=== PATIENT | male | born 1965 | race Two or more races ===

== ENCOUNTER 2016-04-02 13:04 | Inpatient (IN) | payer SELFPAY ==
[~2016-04-02] VITALS: Ht 167.6 cm; Wt 98.1 kg
[2016-04-02] MEDS ORDERED: FENTANYL PF 100 MCG/2 ML VIAL. IV PRN (13:45)
[2016-04-02] MEDS ORDERED: ONDANSETRON PF 4 MG/2 ML VIAL. IV ONE (14:00)
[2016-04-02] MEDS ORDERED: IV NORMAL SALINE 1000ML BAG 1,000 ML IV SCH (14:00)
[2016-04-02 14:08] LABS: BASO # 0.1 x10^3/uL (0.0-0.2); BASO % 1 % (0-3); EOS % 3 % (0-3); HEMATOCRIT 37.7 % (39.0-53.0); HEMOGLOBIN 12.7 g/dL (13.0-17.5); LYMPH # 1.9 x10^3/uL (1.0-4.8); LYMPH % 18 % (24-48); MEAN CORPUSCULAR HEMOGLOBIN 29 pg (25-35); MEAN CORPUSCULAR HGB CONC 34 g/dL (31-37); MEAN CORPUSCULAR VOLUME 87 fL (79-100); MONO % 7 % (0-9); NEUT % 72 % (31-73); PLATELET COUNT 212 x10^3/uL (140-400); RED BLOOD COUNT 4.35 x10^6/uL (4.30-5.70); RED CELL DISTRIBUTION WIDTH 15.4 % (11.5-14.5); WHITE BLOOD COUNT 10.5 x10^3/uL (4.0-11.0)
[2016-04-02 14:13] LABS: NEG OBC FOB NEG; POS OBC FOB POS
[2016-04-02 14:17] LABS: INR 1.1 (0.8-1.1); PROTHROMBIN TIME PATIENT 13.5 SEC (11.7-14.0)
--- NOTE | 2016-04-02 14:18 | EKG ---
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
[2016-04-02 14:20] LABS: BILIRUBIN,URINE NEGATIVE (NEG); GLUCOSE,URINE NEGATIVE (NEG); NITRITE,URINE NEGATIVE (NEG); PROTEIN,URINE 30 mg/dL (NEG-TRACE); UROBILINOGEN,URINE 0.2 mg/dL (0.2 mg/dL)
[2016-04-02 14:23] LABS: CALCIUM 10.3 mg/dL (8.5-10.1); CREATININE 2.5 mg/dL (0.7-1.3); GFR 27.7; POTASSIUM 5.6 mmol/L (3.5-5.1)
[2016-04-02 14:29] LABS: ALBUMIN 5.1 g/dL (3.4-5.0); ALBUMIN/GLOBULIN RATIO 1.4 (1.0-1.7); TOTAL BILIRUBIN 0.5 mg/dL (0.2-1.0); TOTAL PROTEIN 8.7 g/dL (6.4-8.2)
[2016-04-02 14:37] LABS: BACTERIA,URINE 0 /HPF (0-FEW); RBC,URINE 0 /HPF (0-2); SPERM,URINE PRESENT /HPF; WBC,URINE 0 /HPF (0-4)
--- NOTE | 2016-04-02 14:49 | ED.ADGEN ---
Past Medical History Past Medical History: Anxiety, Diabetes-Type II, GERD, Hypertension Past Surgical History: No Surgical History Alcohol Use: None Drug Use: None Adult General Chief Complaint Chief Complaint: ABDOMINAL PAIN HPI HPI Patient is a 50 year old man, history of type 2 diabetes mellitus, hypertension , GERD, who presents to the emergency department with a complaint of periumbilical abdominal pain and cramping that began today, associated with diarrhea, and noted to have blood in his stools. Patient states had 3 stools where he noted bright red blood. He describes the blood as being in the toilet, turning it light red, and also mixed with some stool. Denies any dark tarry stools. Complaining of some nausea but no vomiting. Denies any injuries, does use naproxen, over the past week or so, along with a daily baby aspirin, no history of varices or liver issues, no history of kidney issues, denies any fevers or chills, no previous abdominal surgeries. States he is feeling slightly lightheaded. No chest pain or shortness of breath. Patient was seen at the [facility] today, and sent to the ED for additional evaluation. Review of Systems Review of Systems Constitutional: Denies fever or chills. [] Eyes: Denies change in visual acuity. [] HENT: Denies nasal congestion or sore throat. [] Respiratory: Denies cough or shortness of breath. [] Cardiovascular: Denies chest pain or edema. [] GI: Denies vomiting, periumbilical crampy abdominal pain, associated with bloody stools and diarrhea times one day. : Denies dysuria. [] Musculoskeletal: Denies back pain or joint pain. [] Integument: Denies rash. [] Neurologic: Denies headache, focal weakness or sensory changes. [] Endocrine: Denies polyuria or polydipsia. [] Lymphatic: Denies swollen glands. [] Psychiatric: Denies depression or anxiety. [] Current Medications Current Medications Current Medications Medications (Trade) Dose Ordered Sig/Mimi Start Time Stop Time Status Last Admin Dose Admin Ceftriaxone Sodium/Sodium Chloride (Rocephin/Iv Sodium Chloride 0.9% 50ml) 50 ml @ 100 mls/hr Q24H 04/03/16 16:00 Ceftriaxone Sodium 50 ml @ 100 mls/hr 1X ONCE 04/02/16 15:30 04/02/16 15:59 Dextrose 12.5 gm PRN Q15MIN PRN 04/02/16 15:45 UNV Fentanyl Citrate (Fentanyl 2ml Vial) 50 mcg PRN Q2HR PRN 04/02/16 15:45 UNV Fentanyl Citrate 50 mcg 50 mcg PRN Q15MIN PRN 04/02/16 13:45 04/03/16 13:44 04/02/16 14:03 50 MCG Insulin Aspart (Novolog) 0-5 UNITS TIDWMEALS 04/02/16 17:00 UNV Metronidazole 100 ml @ 100 mls/hr 1X ONCE 04/02/16 15:30 04/02/16 16:29 Ondansetron HCl 4 mg 4 mg PRN Q8HRS PRN 04/02/16 15:45 04/03/16 15:44 UNV Sodium Chloride (Iv Sodium Chloride 0.9% 1000ml Bag) 1,000 ml @ 150 mls/hr Q6H40M 04/02/16 15:31 04/03/16 15:30 UNV Allergies Allergies Allergies Coded Allergies Type Severity Reaction Last Updated Verified acetaminophen Allergy Intermediate 04/02/16 Yes hydrocodone Allergy Intermediate 04/02/16 Yes Physical Exam Physical Exam Constitutional: Well developed, well nourished, no acute distress, non-toxic appearance. [] HENT: Normocephalic, atraumatic, bilateral external ears normal, oropharynx moist, no oral exudates, nose normal. [] Eyes: PERRLA, EOMI, conjunctiva normal, no discharge. [] Neck: Normal range of motion, no tenderness, supple, no stridor. [] Cardiovascular:Heart rate regular rhythm, no murmur, S1, S2, rubs or gallops. [] Lungs & Thorax: Bilateral breath sounds clear to auscultation, no wheezing, rhonchi, rales. No chest tenderness or crepitus. [] Abdomen: Bowel sounds normal, soft, tenderness to palpation in the right lower quadrant and. Umbilical region, no rebound, no rigidity, positive voluntary guarding, no masses, no pulsatile masses. [] Skin: Warm, dry, no erythema, no rash. [] Back: No tenderness, no CVA tenderness. [] Extremities: No tenderness, no cyanosis, no clubbing, ROM intact, no edema. Negative Homans sign. [] Neurologic: Alert and oriented X 3, normal motor function, normal sensory function, no focal deficits noted. [] Psychologic: Affect normal, judgement normal, mood normal. [] Current Patient Data Vital Signs Vital Signs Date Time Temp Pulse Resp B/P Pulse Ox O2 Delivery O2 Flow Rate FiO2 04/02/16 14:03 14 04/02/16 13:30 98.7 67 148/77 96 Room Air 98.7 Lab Values Laboratory Tests Test 04/02/16 13:40 04/02/16 13:50 04/02/16 14:09 White Blood Count 10.5x10^3/uL (4.0-11.0) Red Blood Count 4.35x10^6/uL (4.30-5.70) Hemoglobin 12.7g/dL (13.0-17.5) L Hematocrit 37.7% (39.0-53.0) L Mean Corpuscular Volume 87fL (79-100) Mean Corpuscular Hemoglobin 29pg (25-35) Mean Corpuscular Hemoglobin Concent 34g/dL (31-37) Red Cell Distribution Width 15.4% (11.5-14.5) H Platelet Count 212x10^3/uL (140-400) Neutrophils (%) (Auto) 72% (31-73) Lymphocytes (%) (Auto) 18% (24-48) L Monocytes (%) (Auto) 7% (0-9) Eosinophils (%) (Auto) 3% (0-3) Basophils (%) (Auto) 1% (0-3) Neutrophils # (Auto) 7.5x10^3uL (1.8-7.7) Lymphocytes # (Auto) 1.9x10^3/uL (1.0-4.8) Monocytes # (Auto) 0.7x10^3/uL (0.0-1.1) Eosinophils # (Auto) 0.3x10^3/uL (0.0-0.7) Basophils # (Auto) 0.1x10^3/uL (0.0-0.2) Prothrombin Time 13.5SEC (11.7-14.0) Prothrombin Time INR 1.1 (0.8-1.1) PTT 33SEC (24-38) Sodium Level 140mmol/L (136-145) Potassium Level 5.6mmol/L (3.5-5.1) H Chloride Level 104mmol/L (98-107) Carbon Dioxide Level 20mmol/L (21-32) L Anion Gap 16 (6-14) H Blood Urea Nitrogen 73mg/dL (8-26) H Creatinine 2.5mg/dL (0.7-1.3) H Estimated GFR (Cockcroft-Gault) 27.7 BUN/Creatinine Ratio 29 (6-20) H Glucose Level 112mg/dL (70-99) H Calcium Level 10.3mg/dL (8.5-10.1) H Total Bilirubin 0.5mg/dL (0.2-1.0) Aspartate Amino Transferase (AST) 38U/L (15-37) H Alanine Aminotransferase (ALT) 38U/L (16-63) Alkaline Phosphatase 59U/L (46-116) Troponin I Quantitative < 0.017ng/mL (0.000-0.055) Total Protein 8.7g/dL (6.4-8.2) H Albumin 5.1g/dL (3.4-5.0) H Albumin/Globulin Ratio 1.4 (1.0-1.7) Lipase 200U/L (73-393) Stool Occult Blood Positive (NEG) Urine Collection Type Unknown Urine Color Yellow Urine Clarity Clear Urine pH 5.0 Urine Specific [place] 1.020 Urine Protein 30mg/dL (NEG-TRACE) Urine Glucose (UA) Negativemg/dL (NEG) Urine Ketones (Stick) Negativemg/dL (NEG) Urine Blood Trace (NEG) Urine Nitrite Negative (NEG) Urine Bilirubin Negative (NEG) Urine Urobilinogen Dipstick 0.2mg/dL (0.2 mg/dL) Urine Leukocyte Esterase Negative (NEG) Urine RBC 0/HPF (0-2) Urine WBC 0/HPF (0-4) Urine Bacteria 0/HPF (0-FEW) Urine Hyaline Casts Moderate/HPF Urine Mucus Mod/LPF Urine Sperm Present/HPF Laboratory Tests 04/02/16 13:40 Laboratory Tests 04/02/16 13:40 EKG EKG EC: Sinus rhythm, heart rate 62 beats/minute, left axis deviation, QTC of 380, [place] of 180, QRS of 82, aside from left axis deviation, no other abnormalities identified. As interpreted by me. [] Radiology/Procedures Radiology/Procedures [facility] [address] [place] [address] IMAGING REPORT Signed PATIENT: MARIA D GENTILE ACCOUNT: [id number] : 1965 LOCATION: ER AGE: 50 SEX: M EXAM STATUS: REG ER ORD. PHYSICIAN: JEANNE KING DO REASON: And pain/rectal bleeding PROCEDURE: ABDOMEN PELVIS WO CONTRAST EXAM: CT abdomen/pelvis without contrast. HISTORY: Abdominal pain and rectal bleeding. TECHNIQUE: Computed tomography of the abdomen and pelvis was performed without intravenous contrast. COMPARISON: None. FINDINGS: Lung windows through the visualized portions of the bases reveal coronary atherosclerotic calcifications. Bone windows reveal no suspicious lesions. The liver, spleen, pancreas, gallbladder, adrenal glands and kidneys are unremarkable without contrast. There are no pathologically enlarged lymph nodes. There is mild wall thickening of the transverse colon and hepatic flexure. The colon is decompressed. The left colon is mildly involved. No focal lesions are seen, though sensitivity is low. The appendix is not inflamed. There is no clear small bowel wall thickening. There is no drainable collection. IMPRESSION: 1. Transverse greater than left colonic wall thickening is consistent with colitis. Infectious, inflammatory or ischemic etiologies are possible. Correlate clinically. *One or more of the following individualized dose reduction techniques were utilized for this examination: 1. Automated exposure control. 2. Adjustment of the mA and/or kV according to patient size. 3. Use of iterative reconstruction technique. DICTATED and SIGNED BY: JIM OVALLE MD DATE: 04/02/16 6845 CC: JEANNE KING DO; UNKNOWN PCP NAME ~ Course & Med Decision Making Course & Med Decision Making Pertinent Labs and Imaging studies reviewed. (See chart for details) Patient is agreeable to receiving laboratory studies and imaging with a CT scan in the ED. Rectal examination performed, reveals small amount of brown stool, with no martín blood noted. Fecal occult was positive. Patient denies any history of kidney problems, however creatinine resulted at 2.5, noted to have a blood urea nitrogen of 73, mildly elevated potassium of 5.6. No hemolysis noted.. No history of upper GI bleeding, patient does take NSAIDs daily. No vomiting. Examination history is more consistent with dehydration then of rapid transit upper GI bleed. Second liter IV fluids are infusing, will recheck laboratory studies at that point. CT of abdomen and pelvis reveals colitis, infectious versus inflammatory or ischemic, unclear etiology greater in the transverse colon, findings which I did discuss with the patient was agreeable for initial hospital, IV antibiotics, continued fluids, and consultation with GI area findings as above discussed with Dr. Arvizu of internal medicine, patient accepted to his service as a full admission to the medical telemetry floor, for monitoring, consultation with GI, and treatment as above, bridge orders entered as above per his request Dragon Disclaimer Dragon Disclaimer This electronic medical record was generated, in whole or in part, using a voice recognition dictation system. Departure Impression: Primary Impression: ARF (acute renal failure) Additional Impression: Colitis Disposition: ADMITTED INPATIENT Admitting Physician: Candace Arvizu Condition: IMPROVED Problem Qualifiers Primary Impression: ARF (acute renal failure) Acute renal failure type: unspecified Qualified Code: N17.9 - Acute kidney failure, unspecified JAENNE KING DO Apr 02, 2016 14:49
--- NOTE | 2016-04-02 15:09 | RAD ---
EXAM: CT abdomen/pelvis without contrast. HISTORY: Abdominal pain and rectal bleeding. TECHNIQUE: Computed tomography of the abdomen and pelvis was performed without intravenous contrast. COMPARISON: None. FINDINGS: Lung windows through the visualized portions of the bases reveal coronary atherosclerotic calcifications. Bone windows reveal no suspicious lesions. The liver, spleen, pancreas, gallbladder, adrenal glands and kidneys are unremarkable without contrast. There are no pathologically enlarged lymph nodes. There is mild wall thickening of the transverse colon and hepatic flexure. The colon is decompressed. The left colon is mildly involved. No focal lesions are seen, though sensitivity is low. The appendix is not inflamed. There is no clear small bowel wall thickening. There is no drainable collection. IMPRESSION: 1. Transverse greater than left colonic wall thickening is consistent with colitis. Infectious, inflammatory or ischemic etiologies are possible. Correlate clinically. *One or more of the following individualized dose reduction techniques were utilized for this examination: 1. Automated exposure control. 2. Adjustment of the mA and/or kV according to patient size. 3. Use of iterative reconstruction technique.
[2016-04-02] MEDS ORDERED: CEFTRIAXONE 1GM IVPB FOR OMNI 50 ML IV ONE (15:30)
[2016-04-02] MEDS ORDERED: METRONIDAZOLE 500mg PREMIX 100 ML IV ONE (15:30)
[2016-04-02] MEDS ORDERED: IV NORMAL SALINE 1000ML BAG 1,000 ML IV ONE (15:30)
[2016-04-02] MEDS: IV NORMAL SALINE 1000ML BAG 1,000 ML IV SCH ×2 (15:31→20:30)
[2016-04-02] MEDS ORDERED: ONDANSETRON PF 4 MG/2 ML VIAL. IV PRN (15:45)
[2016-04-02] MEDS ORDERED: DEXTROSE 50% 25 GM / 50ML DISP.SYRIN. IV PRN (15:45)
[2016-04-02] MEDS: FENTANYL PF 100 MCG/2 ML VIAL. IV PRN ×4 (16:14→22:50)
[2016-04-02 16:55] VITALS: BP 124/60
[2016-04-02] MEDS: INSULIN ASPART 300 UNITS/3 ML INSULN.PEN SQ SCH (17:00)
[2016-04-02] MEDS ORDERED: TRAM50TA PO (18:12)
[2016-04-02] MEDS ORDERED: TIZA4CAP PO (18:12)
[2016-04-02] MEDS ORDERED: ASPI-482 PO (18:12)
[2016-04-02] MEDS ORDERED: CARV12.52 PO (18:12)
[2016-04-02] MEDS ORDERED: CRESTOR10 MG PO (18:12)
[2016-04-02] MEDS ORDERED: METF500T9 PO (18:12)
[2016-04-02] MEDS ORDERED: NAPR250T2 PO (18:12)
[2016-04-02] MEDS ORDERED: LISI1TAB5 PO (18:12)
--- NOTE | 2016-04-02 18:35 | ACF ---
Admission Forms Criteria RENAL FAILURE, ACUTE Clinical Indications for Admission to Inpatient Care ( Place 'X' for any and all applicable criteria): Admission is indicated for ALL (if I & II) or III of the following [A](2)(3)(4)( 5)(6)(7): [X]I. Acute renal failure as indicated by ANY ONE of the following: [X]a) A 3-fold rise in serum creatinine from baseline [ ]b) Serum creatinine greater than 4 mg/dL (354 micromoles/L) with an acute rise greater than 0.5 mg/dL (44.2 micromoles/L) [ ]c) Reduction of more than 75% in estimated glomerular filtration rate from baseline [ ]d) Estimated glomerular filtration rate less than 35 mL/min/1.73m2 (0.59mL/sec/1.73m2)in a child up to 18 years of age [ ]e) Anuria indicated by ALL of the following: [ ]i) Adequate volume status [ ]ii) Cessation of urine output indicated by ANY ONE of the following: [ ]1) Urine output less than 0.3 mL/kg/hr for 24 hours [ ]2) Anuria (urine output less than 0.1 mL/kg/ hr) for 12 hours [X] II. Renal failure cannot be managed in an outpatient setting or observational care setting as indicating by ANY ONE of the following: [ ]a) Altered mental status that is severe or persistent [ ]b) Volume overload or Respiratory distress (eg, clinically significant pulmonary edema) that is severe or persistent [ ]c) Cardiac arrhythmias of immediate concern [ ]d) Hemodynamic instability [X]e) Clinically significant electrolyte abnormality that requires inpatient care (eg, hyperkalemia with severe ECG findings)[B] [ ]f) Clinically significant metabolic abnormality (eg, acidosis) that is severe or persistent [ ]g) Acute treatment of renal failure (eg, renal replacement therapy) not feasible or appropriate in observational care setting [ ]h) Clinical situation too unstable or uncertain (eg, inadequate urine output, ongoing decline in renal function, etiology unclear) [ ]i) Necessary support and caregiver ability to comply with outpatient treatment cannot be arranged in observation care timeframe (eg, within 24 hours) [ ]j) Other significant finding or clinical condition judged not to be within scope of observation care [ ]III.General contraindications and/or Inappropriate clinical situations for Observational Care in patients with Acute Renal Failure, when ANY ONE of the following is required: [ ]a) Prediction of prolongation of LOS based on ANY ONE of the following may be considered as a contraindication for observational care 2, 3, 4, 5, 6, 7, 8 , 9, 10, 11 [ ]i) Age > 65 yrs. [ ]ii) Patient arriving by ambulance [ ]iii) Patient with high acuity [ ]iv) Patient requiring vital sign monitoring [ ]v) Patient on IV medication [ ]b) Systolic blood pressures 180mmHg 3,12 [ ]c) Patient with altered mental status including delirium and other alteration of consciousness, (3) [ ]d) Patient whose discharge disposition will be to a residential home or rehabilitation home should not be managed in Emergency Department Observation Unit. CMS rule requires 3 days hospital stay before such placement.3,13 [ ]e) Patient with failure to thrive due to broad array of etiologies 3, 16,17 [ ]f) Inability to ambulate 3,14 Extended stay beyond goal length of stay may be needed for(13) [ ]a) Continuing uremic complications [ ]b) Care for comorbidities [ ]c) acute renal failure [ ]d) Need for dialysis The original [employer] content created by [employer] has been revised. The portions of the content which have been revised are identified through the use of italic text or in bold, and [facility] has neither reviewed nor approved the modified material. All other unmodified content is copyright [employer]. Please see references footnoted in the original [facility] edition 2016 Admission Criteria Met?: Yes MARAL REDDY Apr 02, 2016 18:35
[2016-04-02] MEDS ORDERED: TRAMADOL 50 MG TABLET. PO PRN (18:45)
[2016-04-02 19:00] VITALS: BP 108/67
[2016-04-02] MEDS ORDERED: PNEUMOC CONJ VACC 23-VALENT 0.5 ML VIAL. VAX IM ONE (19:00)
[2016-04-02 19:54] VITALS: BP 108/67
[2016-04-02] MEDS: CARVEDILOL 12.5 MG TABLET PO SCH (21:00)
--- NOTE | 2016-04-02 22:22 | HP ---
ADMIT DATE: 04/02/2016 CHIEF COMPLAINT: Bright red blood per rectum. HISTORY OF PRESENT ILLNESS: The patient is a pleasant middle-aged male who presented with bright red blood per rectum. He has associated abdominal pain. While in the ER, he was noted to have acute renal failure with dehydration and creatinine of 2.5. His CAT scan also showing some colitis. I have discussed the case with the ER physician. We are going to admit the patient and give him IV Flagyl and Rocephin and consult GI. PAST MEDICAL HISTORY: Anxiety, diabetes, hypertension, hyperlipidemia. ALLERGIES: None. FAMILY HISTORY: Diabetes. SOCIAL HISTORY: Does not drink, smoke or take drugs. He is disabled. MEDICATIONS: Reviewed, please refer to the MRAD. REVIEW OF SYSTEMS: GENERAL: No history of weight change, weakness or fevers. SKIN: No bruising, hair changes or rashes. EYES: No blurred, double or loss of vision. NOSE AND THROAT: No history of nosebleeds, hoarseness or sore throat. HEART: No history of palpitations, chest pain or shortness of breath on exertion. LUNGS: Denies cough, hemoptysis, wheezing or shortness of breath. GASTROINTESTINAL: Complains of abdominal pain. GENITOURINARY: No history of frequency, urgency, hesitancy or nocturia. NEUROLOGIC: Denies history of numbness, tingling, tremor or weakness. PSYCHIATRIC: No history of panic, anxiety or depression. ENDOCRINE: No history of heat or cold intolerance, polyuria or polydipsia. EXTREMITIES: Denies muscle weakness, joint pain, pain on walking or stiffness. PHYSICAL EXAMINATION: VITAL SIGNS: Temperature afebrile, pulse 74, respirations 18, blood pressure 124/60. GENERAL: He is alert, cooperative. HEART: Normal S1, S2. LUNGS: Clear. ABDOMEN: Soft. Decreased bowel sounds, tender. EXTREMITIES: No edema. SKIN: No rashes. PSYCHIATRIC: He is anxious. VASCULAR: Good capillary refill. ENDOCRINE: No thyromegaly. LYMPHATICS: No cervical nodes. HEMATOPOIETIC: No bruising. LABORATORY DATA: White count 10, hemoglobin 12, platelets 212. Electrolytes: Sodium 140, potassium 5.6, chloride 104, bicarbonate 20, BUN 73, creatinine 2.5, glucose 112, calcium 10.3, troponin 0. CAT scan shows colitis. ASSESSMENT AND PLAN: Colitis, bright red blood per rectum and dehydration with acute renal failure, probably secondary to tubular necrosis. The patient has been admitted. We will give him IV fluids, IV Flagyl, IV Zosyn. Consult GI. Consult Nephrology. Frequent labs, continue his home meds, PT, OT. JEAN PAUL LLAMAS DO DR: SINDHU/jarvis JOB#: [id number] / [id number]
[2016-04-02] MEDS: METRONIDAZOLE 500mg PREMIX 100 ML IV SCH (22:24)
[2016-04-02 22:42] VITALS: BP 136/68
[2016-04-03] MEDS: FENTANYL PF 100 MCG/2 ML VIAL. IV PRN ×5 (04:04→20:18)
[2016-04-03] MEDS: IV NORMAL SALINE 1000ML BAG 1,000 ML IV SCH ×2 (04:15→11:59)
[2016-04-03 04:46] LABS: BASO % 0 % (0-3); EOS % 3 % (0-3); HEMATOCRIT 35.1 % (39.0-53.0); HEMOGLOBIN 11.7 g/dL (13.0-17.5); LYMPH # 2.4 x10^3/uL (1.0-4.8); LYMPH % 25 % (24-48); MEAN CORPUSCULAR HEMOGLOBIN 29 pg (25-35); MEAN CORPUSCULAR HGB CONC 34 g/dL (31-37); MEAN CORPUSCULAR VOLUME 87 fL (79-100); MONO % 7 % (0-9); NEUT % 65 % (31-73); PLATELET COUNT 187 x10^3/uL (140-400); RED BLOOD COUNT 4.05 x10^6/uL (4.30-5.70); RED CELL DISTRIBUTION WIDTH 15.6 % (11.5-14.5); WHITE BLOOD COUNT 9.6 x10^3/uL (4.0-11.0)
[2016-04-03 05:05] LABS: CALCIUM 9.3 mg/dL (8.5-10.1); CREATININE 1.7 mg/dL (0.7-1.3); GFR 43.2; POTASSIUM 4.9 mmol/L (3.5-5.1)
[2016-04-03] MEDS: METRONIDAZOLE 500mg PREMIX 100 ML IV SCH ×3 (06:13→20:18)
[2016-04-03 07:00] VITALS: BP 141/95
[2016-04-03] MEDS: INSULIN ASPART 300 UNITS/3 ML INSULN.PEN SQ SCH ×3 (07:45→17:00)
[2016-04-03] MEDS: CARVEDILOL 12.5 MG TABLET PO SCH ×2 (09:00→20:17)
[2016-04-03] MEDS ORDERED: PNEUMOCOCCAL VAX SCREEN BY RX. MC ONE (09:00)
--- NOTE | 2016-04-03 10:05 | PDOC ---
PROGRESS NOTES Chief Complaint Chief Complaint Hematochezia ASSESSMENT AND PLAN: 1. BRBPR: Transverse colitis per CT; unclear if infectious or ischemic or inflammatory. treat symptomatically for now. consider C scope if sx persisting. GI following. on flagyl/ceftriax 2. TESFAYE: improving with IVF continue regimen for now, monitor 3. Pain control: on tramadol; d/w him that narcotics should be used judiciously with propensity of causing constipation and subsequent bloating. 4. Anemia: iron (saturation) low; suspect additional component of chronic inflammatory anemia as well - awaiting ferritin Vitals Vitals Vital Signs Date Time Temp Pulse Resp B/P Pulse Ox O2 Delivery O2 Flow Rate FiO2 04/03/16 06:16 16 99 Room Air 04/02/16 22:42 98.7 67 136/68 98.7 Physical Exam General: Alert, Oriented X3, Cooperative, No acute distress Heart: Regular rate Lungs: Clear Abdomen: Normal bowel sounds, Other (B UQ TTP) Extremities: No clubbing, No edema Skin: No rashes Labs LABS Laboratory Tests Test 04/02/16 13:40 04/02/16 13:50 04/02/16 14:09 04/02/16 20:27 White Blood Count 10.5x10^3/uL (4.0-11.0) Red Blood Count 4.35x10^6/uL (4.30-5.70) Hemoglobin 12.7g/dL (13.0-17.5) Hematocrit 37.7% (39.0-53.0) Mean Corpuscular Volume 87fL (79-100) Mean Corpuscular Hemoglobin 29pg (25-35) Mean Corpuscular Hemoglobin Concent 34g/dL (31-37) Red Cell Distribution Width 15.4% (11.5-14.5) Platelet Count 212x10^3/uL (140-400) Neutrophils (%) (Auto) 72% (31-73) Lymphocytes (%) (Auto) 18% (24-48) Monocytes (%) (Auto) 7% (0-9) Eosinophils (%) (Auto) 3% (0-3) Basophils (%) (Auto) 1% (0-3) Neutrophils # (Auto) 7.5x10^3uL (1.8-7.7) Lymphocytes # (Auto) 1.9x10^3/uL (1.0-4.8) Monocytes # (Auto) 0.7x10^3/uL (0.0-1.1) Eosinophils # (Auto) 0.3x10^3/uL (0.0-0.7) Basophils # (Auto) 0.1x10^3/uL (0.0-0.2) Prothrombin Time 13.5SEC (11.7-14.0) Prothromb Time International Ratio 1.1 (0.8-1.1) Activated Partial Thromboplast Time 33SEC (24-38) Sodium Level 140mmol/L (136-145) Potassium Level 5.6mmol/L (3.5-5.1) Chloride Level 104mmol/L (98-107) Carbon Dioxide Level 20mmol/L (21-32) Anion Gap 16 (6-14) Blood Urea Nitrogen 73mg/dL (8-26) Creatinine 2.5mg/dL (0.7-1.3) Estimated GFR (Cockcroft-Gault) 27.7 BUN/Creatinine Ratio 29 (6-20) Glucose Level 112mg/dL (70-99) Calcium Level 10.3mg/dL (8.5-10.1) Total Bilirubin 0.5mg/dL (0.2-1.0) Aspartate Amino Transf (AST/SGOT) 38U/L (15-37) Alanine Aminotransferase (ALT/SGPT) 38U/L (16-63) Alkaline Phosphatase 59U/L (46-116) Troponin I Quantitative < 0.017ng/mL (0.000-0.055) Total Protein 8.7g/dL (6.4-8.2) Albumin 5.1g/dL (3.4-5.0) Albumin/Globulin Ratio 1.4 (1.0-1.7) Lipase 200U/L (73-393) Stool Occult Blood Positive (NEG) Urine Collection Type Unknown Urine Color Yellow Urine Clarity Clear Urine pH 5.0 Urine Specific [place] 1.020 Urine Protein 30mg/dL (NEG-TRACE) Urine Glucose (UA) Negativemg/dL (NEG) Urine Ketones (Stick) Negativemg/dL (NEG) Urine Blood Trace (NEG) Urine Nitrite Negative (NEG) Urine Bilirubin Negative (NEG) Urine Urobilinogen Dipstick 0.2mg/dL (0.2 mg/dL) Urine Leukocyte Esterase Negative (NEG) Urine RBC 0/HPF (0-2) Urine WBC 0/HPF (0-4) Urine Bacteria 0/HPF (0-FEW) Urine Hyaline Casts Moderate/HPF Urine Mucus Mod/LPF Urine Sperm Present/HPF Glucose (Fingerstick) 84mg/dL (70-99) Test 04/03/16 04:10 White Blood Count 9.6x10^3/uL (4.0-11.0) Red Blood Count 4.05x10^6/uL (4.30-5.70) Hemoglobin 11.7g/dL (13.0-17.5) Hematocrit 35.1% (39.0-53.0) Mean Corpuscular Volume 87fL (79-100) Mean Corpuscular Hemoglobin 29pg (25-35) Mean Corpuscular Hemoglobin Concent 34g/dL (31-37) Red Cell Distribution Width 15.6% (11.5-14.5) Platelet Count 187x10^3/uL (140-400) Neutrophils (%) (Auto) 65% (31-73) Lymphocytes (%) (Auto) 25% (24-48) Monocytes (%) (Auto) 7% (0-9) Eosinophils (%) (Auto) 3% (0-3) Basophils (%) (Auto) 0% (0-3) Neutrophils # (Auto) 6.2x10^3uL (1.8-7.7) Lymphocytes # (Auto) 2.4x10^3/uL (1.0-4.8) Monocytes # (Auto) 0.7x10^3/uL (0.0-1.1) Eosinophils # (Auto) 0.3x10^3/uL (0.0-0.7) Basophils # (Auto) 0.0x10^3/uL (0.0-0.2) Sodium Level 143mmol/L (136-145) Potassium Level 4.9mmol/L (3.5-5.1) Chloride Level 108mmol/L (98-107) Carbon Dioxide Level 23mmol/L (21-32) Anion Gap 12 (6-14) Blood Urea Nitrogen 51mg/dL (8-26) Creatinine 1.7mg/dL (0.7-1.3) Estimated GFR (Cockcroft-Gault) 43.2 Glucose Level 97mg/dL (70-99) Calcium Level 9.3mg/dL (8.5-10.1) Review of Systems Review of Systems has lots of "gurgling" and bloating in upper abd, which is worrisome to him. currently no pain BHARGAVI PIERRE MD Apr 03, 2016 10:05
--- NOTE | 2016-04-03 10:27 | PDOC2 ---
GI CONSULT Reason For Consult: Colitis HPI: HPI: 50 y/o male admitted through the ER. At 1:00 a.m. yesterday morning, he awoke w / diffuse abdominal cramping and urge to have a bowel movement. He was unsuccessful for awhile but eventually began having watery stools w/ blood. No precipitating events, said he drank before bed. Bloody diarrhea and cramping continued, hence ER eval. Labs Hgb 12.7 (now 11.7), BUN 73 (now 51), Cr 2.5 ( now 1.7), potassium 5.6 (now 4.9), AST 38, heme positive stool. CT w/ transverse greater than left colonic wall thickening c/w colitis. No similar symptoms previously, no prior colonoscopy. Does report remote h/o EGD 14-15 years ago; apparently was positive for H. pylori and treated at that time. H/o GERD but no longer bothersome. Occasional use of Naproxen and ASA (says he just started). Asking for pain medicine. Treated w/ Metronidazole x 1 w/ ongoing Rocephin. PMH: PMH: HTN, HLD, pre-DM, anxiety, back pain, GERD FH: Family History: No pertinent hx Social History: Smoke: No ALCOHOL: other (previously drank heavily, sober ) Drugs: None ROS: GEN: Denies fevers, chills, sweats HEENT: Denies blurred vision, sore throat CV: Denies chest pain RESP: Denies shortness of air, cough GI: Per HPI : Denies hematuria, dysuria ENDO: Denies weight changes NEURO: Denies confusion, dizziness MSK: Denies weakness, joint pain/swelling SKIN: Denies jaundice, pruritus VItals: Vitals: Vital Signs Date Time Temp Pulse Resp B/P Pulse Ox O2 Delivery O2 Flow Rate FiO2 04/03/16 07:00 97.6 98 20 141/95 98 Room Air 97.6 Labs: Labs: Laboratory Tests Test 04/02/16 13:40 04/02/16 13:50 04/02/16 14:09 04/02/16 20:27 White Blood Count 10.5x10^3/uL (4.0-11.0) Red Blood Count 4.35x10^6/uL (4.30-5.70) Hemoglobin 12.7g/dL (13.0-17.5) Hematocrit 37.7% (39.0-53.0) Mean Corpuscular Volume 87fL (79-100) Mean Corpuscular Hemoglobin 29pg (25-35) Mean Corpuscular Hemoglobin Concent 34g/dL (31-37) Red Cell Distribution Width 15.4% (11.5-14.5) Platelet Count 212x10^3/uL (140-400) Neutrophils (%) (Auto) 72% (31-73) Lymphocytes (%) (Auto) 18% (24-48) Monocytes (%) (Auto) 7% (0-9) Eosinophils (%) (Auto) 3% (0-3) Basophils (%) (Auto) 1% (0-3) Neutrophils # (Auto) 7.5x10^3uL (1.8-7.7) Lymphocytes # (Auto) 1.9x10^3/uL (1.0-4.8) Monocytes # (Auto) 0.7x10^3/uL (0.0-1.1) Eosinophils # (Auto) 0.3x10^3/uL (0.0-0.7) Basophils # (Auto) 0.1x10^3/uL (0.0-0.2) Prothrombin Time 13.5SEC (11.7-14.0) Prothromb Time International Ratio 1.1 (0.8-1.1) Activated Partial Thromboplast Time 33SEC (24-38) Sodium Level 140mmol/L (136-145) Potassium Level 5.6mmol/L (3.5-5.1) Chloride Level 104mmol/L (98-107) Carbon Dioxide Level 20mmol/L (21-32) Anion Gap 16 (6-14) Blood Urea Nitrogen 73mg/dL (8-26) Creatinine 2.5mg/dL (0.7-1.3) Estimated GFR (Cockcroft-Gault) 27.7 BUN/Creatinine Ratio 29 (6-20) Glucose Level 112mg/dL (70-99) Calcium Level 10.3mg/dL (8.5-10.1) Total Bilirubin 0.5mg/dL (0.2-1.0) Aspartate Amino Transf (AST/SGOT) 38U/L (15-37) Alanine Aminotransferase (ALT/SGPT) 38U/L (16-63) Alkaline Phosphatase 59U/L (46-116) Troponin I Quantitative < 0.017ng/mL (0.000-0.055) Total Protein 8.7g/dL (6.4-8.2) Albumin 5.1g/dL (3.4-5.0) Albumin/Globulin Ratio 1.4 (1.0-1.7) Lipase 200U/L (73-393) Stool Occult Blood Positive (NEG) Urine Collection Type Unknown Urine Color Yellow Urine Clarity Clear Urine pH 5.0 Urine Specific [place] 1.020 Urine Protein 30mg/dL (NEG-TRACE) Urine Glucose (UA) Negativemg/dL (NEG) Urine Ketones (Stick) Negativemg/dL (NEG) Urine Blood Trace (NEG) Urine Nitrite Negative (NEG) Urine Bilirubin Negative (NEG) Urine Urobilinogen Dipstick 0.2mg/dL (0.2 mg/dL) Urine Leukocyte Esterase Negative (NEG) Urine RBC 0/HPF (0-2) Urine WBC 0/HPF (0-4) Urine Bacteria 0/HPF (0-FEW) Urine Hyaline Casts Moderate/HPF Urine Mucus Mod/LPF Urine Sperm Present/HPF Glucose (Fingerstick) 84mg/dL (70-99) Test 04/03/16 04:10 White Blood Count 9.6x10^3/uL (4.0-11.0) Red Blood Count 4.05x10^6/uL (4.30-5.70) Hemoglobin 11.7g/dL (13.0-17.5) Hematocrit 35.1% (39.0-53.0) Mean Corpuscular Volume 87fL (79-100) Mean Corpuscular Hemoglobin 29pg (25-35) Mean Corpuscular Hemoglobin Concent 34g/dL (31-37) Red Cell Distribution Width 15.6% (11.5-14.5) Platelet Count 187x10^3/uL (140-400) Neutrophils (%) (Auto) 65% (31-73) Lymphocytes (%) (Auto) 25% (24-48) Monocytes (%) (Auto) 7% (0-9) Eosinophils (%) (Auto) 3% (0-3) Basophils (%) (Auto) 0% (0-3) Neutrophils # (Auto) 6.2x10^3uL (1.8-7.7) Lymphocytes # (Auto) 2.4x10^3/uL (1.0-4.8) Monocytes # (Auto) 0.7x10^3/uL (0.0-1.1) Eosinophils # (Auto) 0.3x10^3/uL (0.0-0.7) Basophils # (Auto) 0.0x10^3/uL (0.0-0.2) Sodium Level 143mmol/L (136-145) Potassium Level 4.9mmol/L (3.5-5.1) Chloride Level 108mmol/L (98-107) Carbon Dioxide Level 23mmol/L (21-32) Anion Gap 12 (6-14) Blood Urea Nitrogen 51mg/dL (8-26) Creatinine 1.7mg/dL (0.7-1.3) Estimated GFR (Cockcroft-Gault) 43.2 Glucose Level 97mg/dL (70-99) Calcium Level 9.3mg/dL (8.5-10.1) Allergies: Coded Allergies: acetaminophen (Verified Allergy, Intermediate, 04/02/16) hydrocodone (Verified Allergy, Intermediate, 04/02/16) Medications: Current Medications Medications (Trade) Dose Ordered Sig/Mimi Route PRN Reason Start Time Stop Time Status Last Admin Dose Admin Fentanyl Citrate 50 mcg 50 mcg PRN Q15MIN PRN IV PAIN GREATER THAN 3/10 04/02/16 13:45 04/03/16 13:44 04/02/16 14:03 Sodium Chloride (Iv Sodium Chloride 0.9% 1000ml Bag) 1,000 ml @ 1,000 mls/hr Q1H IV 04/02/16 14:00 04/02/16 14:59 DC 04/02/16 14:03 Ondansetron HCl 4 mg 4 mg 1X ONCE IV 04/02/16 14:00 04/02/16 14:01 DC 04/02/16 14:02 Sodium Chloride 1,000 ml @ 1,000 mls/hr 1X ONCE IV 04/02/16 15:30 04/02/16 16:29 DC 04/02/16 15:30 Metronidazole 100 ml @ 100 mls/hr Q8HRS IV 04/02/16 22:00 04/03/16 06:13 Metronidazole 100 ml @ 100 mls/hr 1X ONCE IV 04/02/16 15:30 04/02/16 16:29 DC 04/02/16 16:37 Ceftriaxone Sodium (Rocephin 1gm Ivpb For Omni) 50 ml @ 100 mls/hr 1X ONCE IV 04/02/16 15:30 04/02/16 15:59 DC 04/02/16 15:45 Ondansetron HCl 4 mg 4 mg PRN Q8HRS PRN IV NAUSEA/VOMITING 04/02/16 15:45 04/03/16 15:44 04/03/16 04:10 Sodium Chloride (Iv Sodium Chloride 0.9% 1000ml Bag) 1,000 ml @ 150 mls/hr Q6H40M IV 04/02/16 15:31 04/03/16 15:30 04/03/16 04:15 Fentanyl Citrate (Fentanyl 2ml Vial) 50 mcg PRN Q2HR PRN IV PAIN 04/02/16 15:45 04/03/16 09:07 Imaging: Imaging: CT A/P 04/02/16 IMPRESSION: 1. Transverse greater than left colonic wall thickening is consistent with colitis. Infectious, inflammatory or ischemic etiologies are possible. Correlate clinically. PE: GEN: uncomfortable, cooperative HEENT: Atraumatic, PERRL LUNGS: CTAB HEART: RRR ABD: NABS, S/ND, diffuse tender EXTREMITY: No edema SKIN: No rashes, no jaundice NEURO/PSYCH: A & O 3 A/P: A/P: Bloody diarrhea, abdominal cramping -onset overnight 04/[address] -w/ colitis as above H/o GERD, H. pylori -remote EGD and treatment TESFAYE Anemia -- Continue atbx for infectious vs/ ischemic colitis. Check stool studies. Will also check iron profile. Possible colonoscopy next week if unresolved. Will discuss atbx w/ Dr. Foley (?just keep to Rocephin). SANDRA MCBRIDE Apr 03, 2016 10:27
[2016-04-03 11:00] VITALS: BP 134/81
[2016-04-03 11:14] LABS: % SAT IRON 13 % (15-34); IRON,SERUM 49 ug/dL (65-175)
[2016-04-03 15:00] VITALS: BP 123/74
[2016-04-03] MEDS: CEFTRIAXONE SODIUM 1 GM in IV NORMAL SALINE 50ML 50 ML IV SCH (17:06)
[2016-04-03 19:00] VITALS: BP 128/68
[2016-04-03 23:00] VITALS: BP 120/74
[2016-04-04] MEDS ORDERED: SODIUM CHLORIDE 0.65% NASAL SPRAY 45ML BOTTLE. NS PRN (00:45)
[2016-04-04 02:59] VITALS: BP 135/78
[2016-04-04] MEDS: METRONIDAZOLE 500mg PREMIX 100 ML IV SCH ×3 (05:53→22:57)
[2016-04-04 06:51] LABS: BASO % 1 % (0-3); EOS % 3 % (0-3); HEMATOCRIT 34.6 % (39.0-53.0); HEMOGLOBIN 11.7 g/dL (13.0-17.5); LYMPH # 2.1 x10^3/uL (1.0-4.8); LYMPH % 29 % (24-48); MEAN CORPUSCULAR HEMOGLOBIN 29 pg (25-35); MEAN CORPUSCULAR HGB CONC 34 g/dL (31-37); MEAN CORPUSCULAR VOLUME 86 fL (79-100); MONO % 6 % (0-9); NEUT % 61 % (31-73); PLATELET COUNT 184 x10^3/uL (140-400); RED BLOOD COUNT 4.01 x10^6/uL (4.30-5.70); RED CELL DISTRIBUTION WIDTH 15.4 % (11.5-14.5); WHITE BLOOD COUNT 7.1 x10^3/uL (4.0-11.0)
[2016-04-04 07:13] LABS: ALBUMIN 3.6 g/dL (3.4-5.0); CALCIUM 8.7 mg/dL (8.5-10.1); CREATININE 1.3 mg/dL (0.7-1.3); GFR 58.9; POTASSIUM 4.1 mmol/L (3.5-5.1); TOTAL BILIRUBIN 0.4 mg/dL (0.2-1.0); TOTAL PROTEIN 7.3 g/dL (6.4-8.2)
[2016-04-04 07:50] VITALS: BP 129/78
[2016-04-04] MEDS: INSULIN ASPART 300 UNITS/3 ML INSULN.PEN SQ SCH ×3 (08:00→16:25)
[2016-04-04] MEDS: CARVEDILOL 12.5 MG TABLET PO SCH ×2 (09:58→22:57)
--- NOTE | 2016-04-04 11:25 | CONS ---
DATE OF CONSULTATION: HISTORY OF PRESENT ILLNESS: A 50-year-old gentleman found red blood per rectum, presented to the ER for further evaluation. He is also noted to have an elevated creatinine of 2.5 at presentation, potassium 5.6, bicarbonate of 20. Today's potassium is down to 4.9, bicarbonate is 23, BUN 51, creatinine 1.7. We were asked to see him for renal insufficiency. He was taking NSAIDs at home. PAST MEDICAL HISTORY: Anxiety, diabetes, hypertension and hyperlipidemia. FAMILY HISTORY: Positive for diabetes. No kidney problems. SOCIAL HISTORY: Nondrinker, nonsmoker, no drug use. He is disabled as documented. MEDICATIONS: Reviewed as documented ____. REVIEW OF SYSTEMS: As mentioned in HPI. PHYSICAL EXAMINATION: VITAL SIGNS: Blood pressure 134/81, respirations 18, pulse 64, temperature is 97.9. GENERAL: Awake, alert, oriented, no apparent distress, somewhat nervous appearing gentleman. LUNGS: Clear to auscultation. HEAD: NCAT. Sclerae and conjunctivae normal. ABDOMEN: Soft. No CVA tenderness. No suprapubic tenderness. EXTREMITIES: Lower extremities have no edema. LABORATORY DATA: Shows a bicarbonate 23, potassium 4.9, BUN 51, creatinine 1.7, iron saturation is 13%. CT scan shows a left colonic wall thickening consistent with colitis. Kidneys are felt to be unremarkable without contrast, no mention of stone per se. ASSESSMENT AND PLAN: 1. Acute renal failure, no volume depletion and diarrhea responding to intravenous fluids, continue same. 2. Volume depletion, intravenous fluids as ordered. 3. Metabolic acidosis and hyperkalemia, now resolved. KALEY CORREA MD DR: CB/jarvis JOB#: [id number] / [id number]
[2016-04-04 11:31] VITALS: BP 121/72
[2016-04-04 15:08] VITALS: BP 121/76
--- NOTE | 2016-04-04 15:32 | PDOC ---
PROGRESS NOTES Chief Complaint Chief Complaint Hematochezia ASSESSMENT AND PLAN: 1. BRBPR: improving, but still present today. Transverse colitis per CT; unclear if infectious or ischemic or inflammatory. treat symptomatically for now. consider C scope if sx persisting. GI following. on flagyl/ceftriax 2. TESFAYE: much improved with IVF. continue regimen for now, monitor 3. Pain control: on tramadol; pain actually much improved 4. Anemia: iron (saturation) low; combination of iron deficiency and chronic inflammation. replete PO 5. Diet: advance as tolerated Vitals Vitals Vital Signs Date Time Temp Pulse Resp B/P Pulse Ox O2 Delivery O2 Flow Rate FiO2 04/04/16 15:08 98.1 62 18 121/76 99 Room Air 98.1 04/04/16 11:31 99.0 Physical Exam General: Alert, Oriented X3, Cooperative, No acute distress Heart: Regular rate Lungs: Clear Abdomen: Normal bowel sounds, Other (B UQ TTP) Extremities: No clubbing, No edema Skin: No rashes Labs LABS Laboratory Tests Test 04/03/16 16:08 04/03/16 20:37 04/04/16 05:53 04/04/16 08:03 Glucose (Fingerstick) 131mg/dL (70-99) 99mg/dL (70-99) 90mg/dL (70-99) White Blood Count 7.1x10^3/uL (4.0-11.0) Red Blood Count 4.01x10^6/uL (4.30-5.70) Hemoglobin 11.7g/dL (13.0-17.5) Hematocrit 34.6% (39.0-53.0) Mean Corpuscular Volume 86fL (79-100) Mean Corpuscular Hemoglobin 29pg (25-35) Mean Corpuscular Hemoglobin Concent 34g/dL (31-37) Red Cell Distribution Width 15.4% (11.5-14.5) Platelet Count 184x10^3/uL (140-400) Neutrophils (%) (Auto) 61% (31-73) Lymphocytes (%) (Auto) 29% (24-48) Monocytes (%) (Auto) 6% (0-9) Eosinophils (%) (Auto) 3% (0-3) Basophils (%) (Auto) 1% (0-3) Neutrophils # (Auto) 4.4x10^3uL (1.8-7.7) Lymphocytes # (Auto) 2.1x10^3/uL (1.0-4.8) Monocytes # (Auto) 0.4x10^3/uL (0.0-1.1) Eosinophils # (Auto) 0.2x10^3/uL (0.0-0.7) Basophils # (Auto) 0.0x10^3/uL (0.0-0.2) Sodium Level 141mmol/L (136-145) Potassium Level 4.1mmol/L (3.5-5.1) Chloride Level 107mmol/L (98-107) Carbon Dioxide Level 25mmol/L (21-32) Anion Gap 9 (6-14) Blood Urea Nitrogen 24mg/dL (8-26) Creatinine 1.3mg/dL (0.7-1.3) Estimated GFR (Cockcroft-Gault) 58.9 BUN/Creatinine Ratio 18 (6-20) Glucose Level 91mg/dL (70-99) Calcium Level 8.7mg/dL (8.5-10.1) Ferritin 461ng/mL (26-388) Total Bilirubin 0.4mg/dL (0.2-1.0) Aspartate Amino Transf (AST/SGOT) 17U/L (15-37) Alanine Aminotransferase (ALT/SGPT) 27U/L (16-63) Alkaline Phosphatase 49U/L (46-116) Total Protein 7.3g/dL (6.4-8.2) Albumin 3.6g/dL (3.4-5.0) Albumin/Globulin Ratio 1.0 (1.0-1.7) Test 04/04/16 11:42 Glucose (Fingerstick) 181mg/dL (70-99) Review of Systems Review of Systems pain much improved. did notice small amount of dark blood w/ BM BHARGAVI PIERRE MD Apr 04, 2016 15:32
[2016-04-04] MEDS: CEFTRIAXONE SODIUM 1 GM in IV NORMAL SALINE 50ML 50 ML IV SCH (16:11)
--- NOTE | 2016-04-04 17:17 | PDOC ---
Provider Note Provider Note RENAL F/U : GENESIS S : Doing OK No c/o O : VSS Afebrile. Neck : Supple. Lungs : Non labored. CVS : RRR ABD : Portly, benign appearing. No distention. Ext. : No major edema. Labs reviewed. A/P: ARF : Multifactorial. ATN. Resolved. DEHYDRATION : Improved. Supportive care Watch labs. CPM. FREDRICK HURTADO MD Apr 04, 2016 17:17
[2016-04-04 19:00] VITALS: BP 136/89
[2016-04-04 23:00] VITALS: BP 118/78
[2016-04-05 03:00] VITALS: BP 125/67
[2016-04-05] MEDS: METRONIDAZOLE 500mg PREMIX 100 ML IV SCH ×2 (06:40→14:26)
[2016-04-05 06:49] LABS: BASO % 1 % (0-3); EOS % 3 % (0-3); HEMATOCRIT 32.9 % (39.0-53.0); LYMPH # 2.4 x10^3/uL (1.0-4.8); LYMPH % 34 % (24-48); MEAN CORPUSCULAR HEMOGLOBIN 29 pg (25-35); MEAN CORPUSCULAR HGB CONC 33 g/dL (31-37); MEAN CORPUSCULAR VOLUME 86 fL (79-100); MONO % 7 % (0-9); NEUT % 56 % (31-73); PLATELET COUNT 185 x10^3/uL (140-400); RED BLOOD COUNT 3.81 x10^6/uL (4.30-5.70); RED CELL DISTRIBUTION WIDTH 15.3 % (11.5-14.5); WHITE BLOOD COUNT 7.2 x10^3/uL (4.0-11.0)
[2016-04-05 07:00] VITALS: BP 120/73
[2016-04-05 07:04] LABS: ALBUMIN 3.8 g/dL (3.4-5.0); ALBUMIN/GLOBULIN RATIO 1.3 (1.0-1.7); CREATININE 1.2 mg/dL (0.7-1.3); GFR 64.6; POTASSIUM 3.8 mmol/L (3.5-5.1); TOTAL BILIRUBIN 0.3 mg/dL (0.2-1.0); TOTAL PROTEIN 6.8 g/dL (6.4-8.2)
[2016-04-05] MEDS: INSULIN ASPART 300 UNITS/3 ML INSULN.PEN SQ SCH ×3 (08:00→17:00)
[2016-04-05] MEDS: CARVEDILOL 12.5 MG TABLET PO SCH (09:29)
[2016-04-05 11:10] VITALS: BP 123/58
[2016-04-05 15:07] VITALS: BP 122/60
[2016-04-05] MEDS: CEFTRIAXONE SODIUM 1 GM in IV NORMAL SALINE 50ML 50 ML IV SCH (16:28)
--- NOTE | 2016-04-05 16:33 | PDOC ---
PROGRESS NOTES Chief Complaint Chief Complaint Hematochezia ASSESSMENT AND PLAN: 1. BRBPR: melena only. Transverse colitis per CT; unclear if infectious or ischemic or inflammatory. 2. TESFAYE: resolved 3. Pain: minimal 4. Anemia: iron (saturation) low; combination of iron deficiency and chronic inflammation. replete PO 5. Dispo: home today Vitals Vitals Vital Signs Date Time Temp Pulse Resp B/P Pulse Ox O2 Delivery O2 Flow Rate FiO2 04/05/16 15:07 97.9 69 18 122/60 98 Room Air 97.9 04/05/16 08:25 99.0 Physical Exam General: Alert, Oriented X3, Cooperative, No acute distress Heart: Regular rate Lungs: Clear Abdomen: Normal bowel sounds, Other (B UQ TTP) Extremities: No clubbing, No edema Skin: No rashes Labs LABS Laboratory Tests Test 04/04/16 21:10 04/05/16 05:57 04/05/16 07:17 04/05/16 10:27 Glucose (Fingerstick) 86mg/dL (70-99) 88mg/dL (70-99) 113mg/dL (70-99) White Blood Count 7.2x10^3/uL (4.0-11.0) Red Blood Count 3.81x10^6/uL (4.30-5.70) Hemoglobin 11.0g/dL (13.0-17.5) Hematocrit 32.9% (39.0-53.0) Mean Corpuscular Volume 86fL (79-100) Mean Corpuscular Hemoglobin 29pg (25-35) Mean Corpuscular Hemoglobin Concent 33g/dL (31-37) Red Cell Distribution Width 15.3% (11.5-14.5) Platelet Count 185x10^3/uL (140-400) Neutrophils (%) (Auto) 56% (31-73) Lymphocytes (%) (Auto) 34% (24-48) Monocytes (%) (Auto) 7% (0-9) Eosinophils (%) (Auto) 3% (0-3) Basophils (%) (Auto) 1% (0-3) Neutrophils # (Auto) 4.0x10^3uL (1.8-7.7) Lymphocytes # (Auto) 2.4x10^3/uL (1.0-4.8) Monocytes # (Auto) 0.5x10^3/uL (0.0-1.1) Eosinophils # (Auto) 0.2x10^3/uL (0.0-0.7) Basophils # (Auto) 0.0x10^3/uL (0.0-0.2) Sodium Level 143mmol/L (136-145) Potassium Level 3.8mmol/L (3.5-5.1) Chloride Level 108mmol/L (98-107) Carbon Dioxide Level 25mmol/L (21-32) Anion Gap 10 (6-14) Blood Urea Nitrogen 16mg/dL (8-26) Creatinine 1.2mg/dL (0.7-1.3) Estimated GFR (Cockcroft-Gault) 64.6 BUN/Creatinine Ratio 13 (6-20) Glucose Level 93mg/dL (70-99) Calcium Level 9.0mg/dL (8.5-10.1) Total Bilirubin 0.3mg/dL (0.2-1.0) Aspartate Amino Transf (AST/SGOT) 20U/L (15-37) Alanine Aminotransferase (ALT/SGPT) 28U/L (16-63) Alkaline Phosphatase 44U/L (46-116) Total Protein 6.8g/dL (6.4-8.2) Albumin 3.8g/dL (3.4-5.0) Albumin/Globulin Ratio 1.3 (1.0-1.7) Test 04/05/16 16:01 Glucose (Fingerstick) 110mg/dL (70-99) Review of Systems Review of Systems feels good. slightest ting in abd with BM Comment Review of Relevant I have reviewed the following items ab (where applicable) has been applied. Labs Laboratory Tests Test 04/03/16 20:37 04/04/16 05:53 04/04/16 08:03 04/04/16 11:42 Glucose (Fingerstick) 99mg/dL (70-99) 90mg/dL (70-99) 181mg/dL (70-99) White Blood Count 7.1x10^3/uL (4.0-11.0) Red Blood Count 4.01x10^6/uL (4.30-5.70) Hemoglobin 11.7g/dL (13.0-17.5) Hematocrit 34.6% (39.0-53.0) Mean Corpuscular Volume 86fL (79-100) Mean Corpuscular Hemoglobin 29pg (25-35) Mean Corpuscular Hemoglobin Concent 34g/dL (31-37) Red Cell Distribution Width 15.4% (11.5-14.5) Platelet Count 184x10^3/uL (140-400) Neutrophils (%) (Auto) 61% (31-73) Lymphocytes (%) (Auto) 29% (24-48) Monocytes (%) (Auto) 6% (0-9) Eosinophils (%) (Auto) 3% (0-3) Basophils (%) (Auto) 1% (0-3) Neutrophils # (Auto) 4.4x10^3uL (1.8-7.7) Lymphocytes # (Auto) 2.1x10^3/uL (1.0-4.8) Monocytes # (Auto) 0.4x10^3/uL (0.0-1.1) Eosinophils # (Auto) 0.2x10^3/uL (0.0-0.7) Basophils # (Auto) 0.0x10^3/uL (0.0-0.2) Sodium Level 141mmol/L (136-145) Potassium Level 4.1mmol/L (3.5-5.1) Chloride Level 107mmol/L (98-107) Carbon Dioxide Level 25mmol/L (21-32) Anion Gap 9 (6-14) Blood Urea Nitrogen 24mg/dL (8-26) Creatinine 1.3mg/dL (0.7-1.3) Estimated GFR (Cockcroft-Gault) 58.9 BUN/Creatinine Ratio 18 (6-20) Glucose Level 91mg/dL (70-99) Calcium Level 8.7mg/dL (8.5-10.1) Ferritin 461ng/mL (26-388) Total Bilirubin 0.4mg/dL (0.2-1.0) Aspartate Amino Transf (AST/SGOT) 17U/L (15-37) Alanine Aminotransferase (ALT/SGPT) 27U/L (16-63) Alkaline Phosphatase 49U/L (46-116) Total Protein 7.3g/dL (6.4-8.2) Albumin 3.6g/dL (3.4-5.0) Albumin/Globulin Ratio 1.0 (1.0-1.7) Test 04/04/16 16:23 04/04/16 21:10 04/05/16 05:57 04/05/16 07:17 Glucose (Fingerstick) 80mg/dL (70-99) 86mg/dL (70-99) 88mg/dL (70-99) White Blood Count 7.2x10^3/uL (4.0-11.0) Red Blood Count 3.81x10^6/uL (4.30-5.70) Hemoglobin 11.0g/dL (13.0-17.5) Hematocrit 32.9% (39.0-53.0) Mean Corpuscular Volume 86fL (79-100) Mean Corpuscular Hemoglobin 29pg (25-35) Mean Corpuscular Hemoglobin Concent 33g/dL (31-37) Red Cell Distribution Width 15.3% (11.5-14.5) Platelet Count 185x10^3/uL (140-400) Neutrophils (%) (Auto) 56% (31-73) Lymphocytes (%) (Auto) 34% (24-48) Monocytes (%) (Auto) 7% (0-9) Eosinophils (%) (Auto) 3% (0-3) Basophils (%) (Auto) 1% (0-3) Neutrophils # (Auto) 4.0x10^3uL (1.8-7.7) Lymphocytes # (Auto) 2.4x10^3/uL (1.0-4.8) Monocytes # (Auto) 0.5x10^3/uL (0.0-1.1) Eosinophils # (Auto) 0.2x10^3/uL (0.0-0.7) Basophils # (Auto) 0.0x10^3/uL (0.0-0.2) Sodium Level 143mmol/L (136-145) Potassium Level 3.8mmol/L (3.5-5.1) Chloride Level 108mmol/L (98-107) Carbon Dioxide Level 25mmol/L (21-32) Anion Gap 10 (6-14) Blood Urea Nitrogen 16mg/dL (8-26) Creatinine 1.2mg/dL (0.7-1.3) Estimated GFR (Cockcroft-Gault) 64.6 BUN/Creatinine Ratio 13 (6-20) Glucose Level 93mg/dL (70-99) Calcium Level 9.0mg/dL (8.5-10.1) Total Bilirubin 0.3mg/dL (0.2-1.0) Aspartate Amino Transf (AST/SGOT) 20U/L (15-37) Alanine Aminotransferase (ALT/SGPT) 28U/L (16-63) Alkaline Phosphatase 44U/L (46-116) Total Protein 6.8g/dL (6.4-8.2) Albumin 3.8g/dL (3.4-5.0) Albumin/Globulin Ratio 1.3 (1.0-1.7) Test 04/05/16 10:27 04/05/16 16:01 Glucose (Fingerstick) 113mg/dL (70-99) 110mg/dL (70-99) Laboratory Tests Test 04/04/16 21:10 04/05/16 05:57 04/05/16 07:17 04/05/16 10:27 Glucose (Fingerstick) 86mg/dL (70-99) 88mg/dL (70-99) 113mg/dL (70-99) White Blood Count 7.2x10^3/uL (4.0-11.0) Red Blood Count 3.81x10^6/uL (4.30-5.70) Hemoglobin 11.0g/dL (13.0-17.5) Hematocrit 32.9% (39.0-53.0) Mean Corpuscular Volume 86fL (79-100) Mean Corpuscular Hemoglobin 29pg (25-35) Mean Corpuscular Hemoglobin Concent 33g/dL (31-37) Red Cell Distribution Width 15.3% (11.5-14.5) Platelet Count 185x10^3/uL (140-400) Neutrophils (%) (Auto) 56% (31-73) Lymphocytes (%) (Auto) 34% (24-48) Monocytes (%) (Auto) 7% (0-9) Eosinophils (%) (Auto) 3% (0-3) Basophils (%) (Auto) 1% (0-3) Neutrophils # (Auto) 4.0x10^3uL (1.8-7.7) Lymphocytes # (Auto) 2.4x10^3/uL (1.0-4.8) Monocytes # (Auto) 0.5x10^3/uL (0.0-1.1) Eosinophils # (Auto) 0.2x10^3/uL (0.0-0.7) Basophils # (Auto) 0.0x10^3/uL (0.0-0.2) Sodium Level 143mmol/L (136-145) Potassium Level 3.8mmol/L (3.5-5.1) Chloride Level 108mmol/L (98-107) Carbon Dioxide Level 25mmol/L (21-32) Anion Gap 10 (6-14) Blood Urea Nitrogen 16mg/dL (8-26) Creatinine 1.2mg/dL (0.7-1.3) Estimated GFR (Cockcroft-Gault) 64.6 BUN/Creatinine Ratio 13 (6-20) Glucose Level 93mg/dL (70-99) Calcium Level 9.0mg/dL (8.5-10.1) Total Bilirubin 0.3mg/dL (0.2-1.0) Aspartate Amino Transf (AST/SGOT) 20U/L (15-37) Alanine Aminotransferase (ALT/SGPT) 28U/L (16-63) Alkaline Phosphatase 44U/L (46-116) Total Protein 6.8g/dL (6.4-8.2) Albumin 3.8g/dL (3.4-5.0) Albumin/Globulin Ratio 1.3 (1.0-1.7) Test 04/05/16 16:01 Glucose (Fingerstick) 110mg/dL (70-99) Medications Current Medications Fentanyl Citrate 50 mcg 50 mcg PRN Q15MIN PRN IV PAIN GREATER THAN 3/10 Last administered on 04/02/16t 14:03; Start 04/02/16 at 13:45; Stop 04/03/16 at 13:44 ; Status DC Sodium Chloride (Iv Sodium Chloride 0.9% 1000ml Bag) 1,000 ml @ 1,000 mls/hr Q1H IV Last administered on 04/02/16 14:03; Start 04/02/16 at 14:00; Stop at 14:59; Status DC Ondansetron HCl 4 mg 4 mg 1X ONCE IV Last administered on 04/02/16 14:02; Start 04/02/16 at 14:00; Stop 04/02/16 at 14:01; Status DC Sodium Chloride 1,000 ml @ 1,000 mls/hr 1X ONCE IV Last administered on 15:30; Start 04/02/16 at 15:30; Stop 04/02/16 at 16:29; Status DC Metronidazole 100 ml @ 100 mls/hr Q8HRS IV Last administered on 04/05/16 14: 26; Start 04/02/16 at 22:00 Metronidazole 100 ml @ 100 mls/hr 1X ONCE IV Last administered on 04/02/16 16:37; Start 04/02/16 at 15:30; Stop 04/02/16 at 16:29; Status DC Ceftriaxone Sodium 50 ml @ 100 mls/hr 1X ONCE IV Last administered on 15:45; Start 04/02/16 at 15:30; Stop 04/02/16 at 15:59; Status DC Ceftriaxone Sodium/Sodium Chloride (Rocephin/Iv Sodium Chloride 0.9% 50ml) 50 ml @ 100 mls/hr Q24H IV Last administered on 04/05/16 16:28; Start 04/03/16 at 16:00 Ondansetron HCl 4 mg 4 mg PRN Q8HRS PRN IV NAUSEA/VOMITING Last administered on 04/03/16 04:10; Start 04/02/16 at 15:45; Stop 04/03/16 at 15:44; Status DC Sodium Chloride (Iv Sodium Chloride 0.9% 1000ml Bag) 1,000 ml @ 150 mls/hr Q6H40M IV Last administered on 04/03/16 11:59; Start 04/02/16 at 15:31; Stop 04/03/16 at 15:30; Status DC Insulin Aspart (Novolog) 0-5 UNITS TIDWMEALS SQ Last administered on 04/04/16 11:55; Start 04/02/16 at 17:00 Dextrose 12.5 gm PRN Q15MIN PRN IV SEE COMMENTS; Start 04/02/16 at 15:45 Fentanyl Citrate (Fentanyl 2ml Vial) 50 mcg PRN Q2HR PRN IV PAIN Last administered on 04/03/16 20:18; Start 04/02/16 at 15:45 Pneumococcal Polyvalent Vaccine (Do NOT chart on this placeholder) 1 each 1X ONCE MC ; Start 04/03/16 at 09:00; Stop 04/03/16 at 09:01; Status UNV Pneumococcal Polyvalent Vaccine (Pneumovax 23) 0.5 ml ONCE ONCE VAX IM ; Start 04/02/16 at 19:00; Stop 04/02/16 at 19:01; Status DC Carvedilol (Coreg) 12.5 mg BID PO Last administered on 04/05/16 09:29; Start 04/02/16 at 21:00 Tramadol HCl (Ultram) 50 mg QIDPRN PRN PO PAIN Last administered on 04/03/16 23:47; Start 04/02/16 at 18:45 Sodium Chloride (Saline Mist Nasal) 1 rahat PRN Q1HR PRN NS NASAL CONGESTION; Start 04/04/16 at 00:45 Active Scripts Active Reported Naproxen 250 Mg Tablet 250 Mg PO HS Tizanidine Hcl 4 Mg Capsule 4 Mg PO TID PRN Aspir 81 (Aspirin) 81 Mg Tablet. 1 Tab PO DAILY Carvedilol 12.5 Mg Tablet 1 Tab PO BID Metformin Hcl Er (Metformin Hcl) 500 Mg Tab.er.24h 1 Tab PO DAILY Tramadol Hcl 50 Mg Tablet 1-2 Tab PO PRN Q4-6HRS PRN Crestor (Rosuvastatin Calcium) 10 Mg Tablet 10 Mg PO HS Lisinopril-Hctz 20-12.5 Mg Tab (Lisinopril/Hydrochlorothiazide) 1 Each Tablet 2 Tab PO DAILY Vitals/I & O Vital Sign - Last 24 Hours 04/04/16 04/04/16 04/04/16 04/04/16 19:00 20:00 22:57 23:00 Temp 98.5 98.4 98.5 98.4 Pulse 72 72 64 Resp 18 16 B/P 136/89 136/89 118/78 Pulse Ox 98 97 O2 Delivery Room Air 04/05/16 04/05/16 04/05/16 04/05/16 03:00 07:00 08:25 09:29 Temp 97.8 97.9 97.8 97.9 Pulse 58 59 59 Resp 16 18 B/P 125/67 120/73 120/73 Pulse Ox 97 98 O2 Delivery Room Air Room Air O2 Flow Rate 99.0 04/05/16 04/05/16 11:10 15:07 Temp 97.9 97.9 97.9 97.9 Pulse 71 69 Resp 18 18 B/P 123/58 122/60 Pulse Ox 98 98 O2 Delivery Room Air Room Air Intake and Output 04/04/16 04/04/16 04/05/16 15:00 23:00 07:00 Intake Total 1020 ml 200 ml Output Total 3 ml Balance 1020 ml 197 ml BHARGAVI PIERRE MD Apr 05, 2016 16:33
--- NOTE | 2016-04-05 23:47 | PDOC ---
Provider Note Provider Note RENAL F/U : GENESIS S : Doing OK No c/o O : VSS Afebrile. Neck : Supple. Lungs : Non labored. CVS : RRR ABD : Portly, benign appearing. No distention. Ext. : No major edema. Labs reviewed. A/P: ARF : Multifactorial. ATN. Resolved. DEHYDRATION : Improved. OK to DC FREDRICK HURTADO MD Apr 05, 2016 23:47
--- NOTE | 2016-04-06 22:39 | DS ---
DATE OF DISCHARGE: 04/05/2016 CHIEF COMPLAINT: Hematochezia. HOSPITAL COURSE: The patient presented to the Emergency Room with bright red blood per rectum as well as abdominal pain. CAT scan did reveal transverse colitis, question infectious versus ischemic. Initially requiring IV narcotics, abdominal pain resolved fairly quickly. The hematochezia abated as well and towards the end of hospitalization had changed to melena. He tolerated p.o. without any difficulties and was therefore discharged to home. PHYSICAL EXAMINATION: Please refer to note from same day discharge day, 04/04/2016. DISCHARGE DISPOSITION: To home. DISCHARGE CONDITION: Improved. DISCHARGE DIAGNOSES: Colitis, hematochezia. DISCHARGE MEDICATIONS: Please refer to MAR. DISCHARGE INSTRUCTIONS: The patient will follow up with his PCP in 1-2 weeks. BHARGAVI PIERRE MD DR: UR/nts JOB#: [id number] / [id number]
== END 2016-04-05 20:00 | disposition home or self-care (01) | DRG 391 ==
LOC: ER 13:04 → 5 SOUTH 15:23
PROVIDERS: ADMIT Internal Medicine; ATTEND Internal Medicine
DX: K52.9 Noninfective gastroenteritis and colitis, unspecified (principal); N17.0 Acute kidney failure with tubular necrosis; K92.1 Melena; E87.2 Acidosis; D50.9 Iron deficiency anemia, unspecified; E11.9 Type 2 diabetes mellitus without complications; E78.5 Hyperlipidemia, unspecified; E87.5 Hyperkalemia; F41.9 Anxiety disorder, unspecified; I10 Essential (primary) hypertension; K21.9 Gastro-esophageal reflux disease without esophagitis; Z83.3 Family history of diabetes mellitus; Z88.6 Allergy status to analgesic agent; Z88.8 Allergy status to other drugs, medicaments and biological substances; Z79.899 Other long term (current) drug therapy; Z79.82 Long term (current) use of aspirin
CPT/HCPCS: 36415; 74176; 80048; 80053; 81001; 82274; 82728; 82947; 83540; 83550; 83690; 84484; 85027; 85610; 85730; 87045; 87324; 93005; 96361; 96374; 96375; G0103; J0690; J0696; J1815; J2405; J3010; J3490; J7030; 99285-25